=== PATIENT | female | born 1960 | race Caucasian/White ===

== ENCOUNTER 2022-03-02 15:42 | Emergency (ER) | payer MEDICARE, MEDICAID ==
[~2022-03-02] VITALS: Ht 157.5 cm; Wt 71.0 kg
[~2022-03-02 15:42] MED LIST: ATE25T PO; CYCL-394 PO; IBUP-1573 PO
[2022-03-02 15:46] VITALS: BP 120/77
[2022-03-02] MEDS ORDERED: cephalexin 500mg capsule PO ONE (16:55)
[2022-03-02] MEDS ORDERED: bacitracin 15gm ointment TP ONE (16:55)
== END 2022-03-02 17:17 | disposition home or self-care (01) ==
LOC: ER 15:43
DX: L03.011 Cellulitis of right finger (principal); M79.644 Pain in right finger(s); I10 Essential (primary) hypertension; Z90.710 Acquired absence of both cervix and uterus; Z79.899 Other long term (current) drug therapy
CPT/HCPCS: 99283

== ENCOUNTER 2024-05-17 14:46 | Emergency (ER) | payer MEDICARE, MEDICAID ==
[~2024-05-17] VITALS: Ht 165.1 cm; Wt 66.0 kg
[2024-05-17 15:39] LABS: BASOPHILS % (AUTO) 0.6 % (0-1); EOSINOPHILS # (AUTO) 0.1 X10'3 (0-0.9); HEMATOCRIT 43.1 % (35.0-45.0); HEMOGLOBIN 13.7 g/dl (12.0-16.0); LYMPHOCYTES # (AUTO) 2.2 X10'3 (1.1-4.8); LYMPHOCYTES % (AUTO) 31.2 % (21-51); MEAN CORPUSCULAR HEMOGLOBIN 25.6 PG (27.0-31.0); MEAN CORPUSCULAR HGB CONC 31.9 g/dL (33.0-36.5); MEAN CORPUSCULAR VOLUME 80.4 FL (78-98); MEAN PLATELET VOLUME 8.1 FL (7.4-10.4); MONOCYTES # (AUTO) 0.5 X10'3 (0-0.9); MONOCYTES % (AUTO) 6.9 % (2-12); NEUTROPHILS # (AUTO) 4.2 X10'3 (1.8-7.7); NEUTROPHILS % (AUTO) 60.3 % (42-75); PLATELET COUNT 349 X10'3 (140-440); RED BLOOD COUNT 5.36 X10'6 (4.20-5.60); RED CELL DISTRIBUTION WIDTH 13.7 % (11.5-14.5)
[2024-05-17 16:08] LABS: APTT 29 SECONDS (22-32)
[2024-05-17 16:09] LABS: ALANINE AMINOTRANSFERASE 25 U/L (12-78); ALBUMIN/GLOBULIN RATIO 1.2 (1.1-1.5); ALKALINE PHOSPHATASE 121 IU/L (46-116); ANION GAP 5 (8-16); ASPARTATE AMINO TRANSFERASE 18 U/L (10-37); BILIRUBIN,TOTAL 0.5 MG/DL (0.1-1.0); BLOOD UREA NITROGEN 8 MG/DL (7-18); BUN/CREATININE RATIO 9.3 (10.0-20.0); CALCIUM 9.1 MG/DL (8.5-10.1); CHLORIDE 105 MMOL/L (99-107); CREATININE 0.86 MG/DL (0.40-0.90); GLUCOSE 113 MG/DL (70-104); POTASSIUM 4.3 MMOL/L (3.5-5.1); SODIUM 139 MMOL/L (135-145); TOTAL PROTEIN 7.4 G/DL (6.4-8.2); eCRCL 59 ML/MIN; eGFR 66 ML/MIN
[2024-05-17 16:19] LABS: FREE T4 (FREE THYROXINE) 0.88 NG/DL (0.73-1.40); MAGNESIUM 2.2 MG/DL (1.5-2.4); PRO BRAIN NATRIURETIC PEPTIDE 62 PG/ML (0-125); THYROID STIMULATING HORMONE 1.07 ulU/ml (0.34-4.50)
[2024-05-17] MEDS: meclizine 12.5mg tablet PO ONE (16:41)
[2024-05-17] MEDS ORDERED: MECL-302 PO (17:34)
[2024-05-17 18:04] VITALS: BP 115/72; PULSE 78; RESP 16; TEMP 97.6; O2SAT 96
== END 2024-05-17 18:09 | disposition home or self-care (01) ==
LOC: ER 14:47
DX: R42 Dizziness and giddiness (principal); I10 Essential (primary) hypertension; Z90.710 Acquired absence of both cervix and uterus
CPT/HCPCS: 36415; 71045; 80053; 83735; 83880; 84439; 84443; 84484; 85025; 85610; 85730; 93005; 99285; J8597

== ENCOUNTER 2024-07-29 15:03 | Emergency (ER) | payer MEDICARE, MEDICAID ==
[~2024-07-29] VITALS: Ht 152.4 cm; Wt 66.0 kg
[~2024-07-29 15:03] MED LIST changes: +MECL-302 PO
[2024-07-29 15:15] VITALS: TEMP 97.7
--- NOTE | 2024-07-29 17:31 | Physician Documentation ---
History of Present Illness ~ Chief Complaint: Puncture Wound Stated Complaint: FOOT LAC Time Seen by MD: 15:22 Primary Medical Doctor: [facility] HPI Patient is seen today stating she accidentally stepped on a nail and it went through her shoe/flip-flops earlier today and wants a tetanus shot. Patient has no other concern or complaint at this time. Tetanus Within 5 Years: No Medication Reconciliation Allergies: Coded Allergies: No Known Allergies (Unverified , 05/17/24) Scheduled Atenolol* (Tenormin*), 25 MG PO DAILY, (Reported) Cyclobenzaprine HCl (Cyclobenzaprine HCl), 10 MG PO TID, (Reported) Ibuprofen (Ibuprofen), 600 MG PO PRN, (Reported) Meclizine HCl (Meclizine HCl), 1-2 TAB PO Q8H Past Medical History Past Medical History: Hypertension Past Surgical History: hysterectomy Other Past Surgical History: Alcohol Use: None Drug Use: none Lives In: Home Review of Systems Constitutional: Denies: chills, fever, weakness Eyes: Denies: pain, blurred vision ENT: Denies: ear pain, nose pain, throat pain, mouth pain Respiratory: Denies: cough, shortness of breath Cardiovascular: Denies: chest pain, palpitations Gastrointestinal: Denies: abdominal pain, nausea, vomiting Genitourinary: Denies: burning, dysuria Female Genitalia: Denies: vaginal discharge, pelvic pain Neurological: Denies: headache, dizziness Musculoskeletal: Denies: pain, swelling Integumentary: Denies: rash, lesions Allergic/Immunologic: Denies: hives, itching Hematologic/Lymphatic: Denies: no symptoms reported Psychiatric: Denies: depression, anxiety Physical Exam Vital Signs: Temperature: 97.7, Source: Temporal, Heart Rate: 66, Respiratory Rate: 16, BP: 123/76, Pulse Oximetry: 98, Weight: 66.000 Oxygen Flow Rate: 0 Physical Exam General: Awake and Alert, no acute distress. HEENT: Conjunctiva pink, Sclera clear, Mucus Membranes moist. Neck: Supple without masses and tenderness. Resp: Unlabored. Lungs clear to auscultation bilaterally. Heart: Regular Rate and rhythm, normal S1 and S2 without murmur, rub or gallop. Musculoskeletal: Patient on exam does have dried blood of her left handle and left foot with a puncture through her left flip-flops and a puncture wound in her sole of her left foot. I do not appreciate any purulence or drainage or erythema or sign of current infection. There is minimal tenderness to palpation. Skin: Warm and Dry. Progress Results/Orders Results/Orders Completed Orders - CLAYTON RIDDLE Tetanus/Pertuss/Diph Acell/Pf (Boostrix (07/29/24 17:30) Ciprofloxacin Tablet (Cipro Tablet) (07/29/24 17:29) Vital Signs 07/29/24 15:15 Temp 97.7 Pulse 66 Resp 16 B/P (MAP) 123/76 Pulse Ox 98 O2 Flow Rate 0 Medical Decision Making Findings Patient is seen today stating she accidentally stepped on a nail and it went through her shoe/flip-flops earlier today and wants a tetanus shot. Patient has no other concern or complaint at this time. Patient denies any fevers or chills or abdominal pain or nausea, vomiting, diarrhea. Patient has no other concern or complaint at this time. Patient was given Tdap vaccination in the ED today along with ciprofloxacin 500 mg by mouth in the ED. Prescription of Cipro sent to patient's pharmacy to take one tab by mouth twice a day for five days. Patient will return to ED with any worsening, concerning or changing symptoms. Departure Disposition: 01 HOME / SELF CARE / HOMELESS Impression: Primary Impression: Puncture wound Condition: Stable Discharge Instructions: Puncture Wound, [id number] Additional Instructions: Patient was given Tdap vaccination in the ED today along with ciprofloxacin 500 mg by mouth in the ED. Prescription of Cipro sent to patient's pharmacy to take one tab by mouth twice a day for five days. Patient will return to ED with any worsening, concerning or changing symptoms. Referrals: NO PRIMARY CARE PROVIDER (PCP) Prescriptions Ciprofloxacin HCl (Cipro) 500 Mg Tablet 1 TAB PO Q12H for 5 Days, #10 TAB Prov: CLAYTON RIDDLE 07/29/24 Signature Scribe Signature: No scribe Attestation: No scribe CLAYTON RIDDLE Jul 29, 2024 17:31
[2024-07-29] MEDS ORDERED: CIPR-259 PO (18:09)
[2024-07-29] MEDS: ciprofloxacin 250mg tablet PO STA (18:24)
[2024-07-29] MEDS: TETanus/Pertussis (Acell)/Diphther VAC/PF (Tdap-Adult) 0.5ml syringe IMVAC ONE (18:24)
[2024-07-29 18:29] VITALS: BP 145/84; PULSE 58; RESP 16; O2SAT 98
== END 2024-07-29 18:35 | disposition home or self-care (01) ==
LOC: ER 15:04
DX: S91.332A Puncture wound without foreign body, left foot, initial encounter (principal); I10 Essential (primary) hypertension; Z90.710 Acquired absence of both cervix and uterus; W22.8XXA Striking against or struck by other objects, initial encounter; Y93.89 Activity, other specified; Y92.89 Other specified places as the place of occurrence of the external cause; Y99.8 Other external cause status
CPT/HCPCS: 90715; 99283; G0008; 90471